=== PATIENT | female | born 2005 | race Caucasian/White ===

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

== ENCOUNTER 2024-05-18 07:45 | Inpatient (IN) | payer MEDICAID ==
[2024-05-18] MEDS ORDERED: Zofran 4 MG/2 ML VIAL IV PRN (08:14)
[2024-05-18 08:46] LABS: Absolute Neutrophil Ct (ANC) 4.58 x10^3/uL (1.56-6.13); BASOPHIL % 0.6 % (0.1-1.2); Basophil (Absolute #) 0.04 x10^3/uL (0.01-0.08); Eosinophil % 0.9 % (0.7-5.8); Eosinophil (Absolute #) 0.06 x10^3/uL (0.04-0.36); Hematocrit 30.4 % (34.1-44.9); Hemoglobin 9.2 g/dL (11.2-15.7); IMMATURE GRAN # 0.05 x10^3u/L (0.001-0.031); IMMATURE GRAN % 0.7 % (0.001-0.429); Lymphocyte (Absolute #) 1.67 x10^3/uL (1.18-3.74); Mean Cell Volume 75.8 fL (79.4-94.8); Mean Corpuscular Hemoglobin 22.9 pg (25.6-32.2); Mean Corpuscular Hgb Concent. 30.3 g/dL (32.2-35.5); Monocyte (Absolute #) 0.57 x10^3/uL (0.24-0.86); Monocytes % 8.2 % (4.7-12.5); Neutrophil % 65.6 % (34.0-71.1); Platelet Count 133 x10^3/uL (182-369); Red Blood Count 4.01 x10^6/uL (3.93-5.22); Red Cell Distribution Width 15.4 % (11.7-14.4)
[2024-05-18] MEDS: CYTOTEC PO SCH (08:51)
[2024-05-18 09:13] LABS: Amphetamine,Urine NEGATIVE (NEGATIVE); Barbiturate,Urine NEGATIVE (NEGATIVE); Benzodiazepine,Urine NEGATIVE (NEGATIVE); Cocaine,Urine NEGATIVE (NEGATIVE); Methadone,Urine NEGATIVE (NEGATIVE); Opiate,Urine NEGATIVE (NEGATIVE); PCP,Urine NEGATIVE (NEGATIVE); THC,Urine NEGATIVE (NEGATIVE)
[2024-05-18 09:26] LABS: ABO TYPING AB
[2024-05-18 09:27] LABS: Antibody Screen NEGATIVE (NEGATIVE); RH TYPING POSITIVE
[2024-05-18] MEDS: Lactated Ringers 1,000 ML IV SCH (21:50)
[2024-05-18] MEDS: FENTANYL 2 MCG-BUPIV 0.125%-NS 250 ML Epidur 250 ML EPIDURAL SCH (22:44)
[2024-05-18] MEDS: Lactated Ringers 1,000 ML IV ONE (23:01)
[2024-05-18] MEDS: OMNIPEN 2 GM*** 2 G in Sodium Chloride 100ML MINI-BAG PLUS 100 ML IV ONE (23:30)
[2024-05-19 00:43] LABS: Amphetamine,Urine NEGATIVE (NEGATIVE); Barbiturate,Urine NEGATIVE (NEGATIVE); Benzodiazepine,Urine NEGATIVE (NEGATIVE); Cocaine,Urine NEGATIVE (NEGATIVE); Methadone,Urine NEGATIVE (NEGATIVE); Opiate,Urine NEGATIVE (NEGATIVE); PCP,Urine NEGATIVE (NEGATIVE); THC,Urine NEGATIVE (NEGATIVE)
[2024-05-19] MEDS: OMNIPEN 1 GM*** 1 GM in Sodium Chloride 100ML MINI-BAG PLUS 100 ML IV SCH (03:30)
[2024-05-19] MEDS: Ephedrine Sulfate 50 MG/ML IV PRN (04:23)
[2024-05-19] MEDS: PITOCIN 30 UNITS/ LR 500 ML 30 UNITS/500 ML PLAST..BAG IV SCH (06:45)
[2024-05-19 07:35] LABS: RPR Non Reactive (Non Reactive)
[2024-05-19] MEDS ORDERED: OMNIPEN 2 GM*** 2 G in Sodium Chloride 100ML MINI-BAG PLUS 100 ML IV ONE (08:00)
[2024-05-19] MEDS ORDERED: TUCKS TP PRN (08:12)
[2024-05-19] MEDS ORDERED: OMNIPEN 1 GM*** 1 GM in Sodium Chloride 100ML MINI-BAG PLUS 100 ML IV SCH (11:00)
[2024-05-19] MEDS: Dermoplast Spray TP PRN (11:38)
[2024-05-19] MEDS: LANSINOH 40 GM TOP PRN (11:39)
[2024-05-19] MEDS: MOTRIN 400 MG PO PRN (18:10)
[2024-05-19] MEDS: TYLENOL EXTRA STRENGTH 500 MG PO PRN (20:38)
[2024-05-19] MEDS: Docusate Sodium 100 MG PO SCH (22:52)
[2024-05-20 06:13] LABS: Absolute Neutrophil Ct (ANC) 6.35 x10^3/uL (1.56-6.13); BASOPHIL % 0.7 % (0.1-1.2); Basophil (Absolute #) 0.07 x10^3/uL (0.01-0.08); Eosinophil % 1.3 % (0.7-5.8); Eosinophil (Absolute #) 0.13 x10^3/uL (0.04-0.36); Hematocrit 28.7 % (34.1-44.9); Hemoglobin 8.6 g/dL (11.2-15.7); IMMATURE GRAN # 0.07 x10^3u/L (0.001-0.031); IMMATURE GRAN % 0.7 % (0.001-0.429); Lymphocyte (Absolute #) 2.53 x10^3/uL (1.18-3.74); Lymphocytes % 25.1 % (19.3-51.7); Mean Cell Volume 74.5 fL (79.4-94.8); Mean Corpuscular Hemoglobin 22.3 pg (25.6-32.2); Mean Platelet Volume 12.8 fL (9.4-12.3); Monocyte (Absolute #) 0.91 x10^3/uL (0.24-0.86); Neutrophil % 63.2 % (34.0-71.1); Platelet Count 142 x10^3/uL (182-369); Red Blood Count 3.85 x10^6/uL (3.93-5.22); Red Cell Distribution Width 15.6 % (11.7-14.4); White Blood Count 10.1 x10^3/uL (3.98-10.04)
[2024-05-20 07:02] LABS: Slide Review 1 YES
[2024-05-20 09:27] VITALS: RESP 14
--- NOTE | 2024-05-20 11:13 | PCM.DS ---
Discharge Summary Date of Admission: 05/18/24 22:40 Admitting Physician: GREG CASTELLANO DO Consults: Consults on Case 05/18/24 22:06 Notify Anesthesia Provider OCTAVIO 05/19/24 11:01 Navigation ONCE Primary Care Provider: COREY CHU ALEXA Allergies Allergies bee venom protein (honey bee) Allergy (Verified 05/18/24 09:59) Hospital Summary - Hospital Course Hospital Course: patient had uncomplicated vaginal delivery at 39wks via cytotec induction, no pitocin required. no repair, well with mild lochia and no issues. well bonded with infant, breastfed previously with older child. requesting early discharge today - Vitals & Intake/Output Vital Signs: Vital Signs Temperature 98.2 F 05/20/24 08:30 Pulse Rate 82 05/20/24 08:30 Respiratory Rate 14 05/20/24 08:30 Blood Pressure 134/87 05/20/24 08:30 O2 Sat by Pulse Oximetry 98 05/20/24 08:30 Intake & Output: Intake & Output 05/17/24 05/18/24 05/19/24 05/20/24 11:59 11:59 11:59 11:59 Intake Total 480 5200 1000 Output Total 2275 Balance 480 2925 1000 Weight 117.934 kg - Lab Result Diagrams: 05/20/24 06:10 Lab Results-Last 24 Hrs: Lab Results-Last 24 Hours 05/20/24 Range/Units 06:10 WBC 10.1 H (3.98-10.04) x10^3/uL RBC 3.85 L (3.93-5.22) x10^6/uL Hgb 8.6 L (11.2-15.7) g/dL Hct 28.7 L (34.1-44.9) % MCV 74.5 L (79.4-94.8) fL MCH 22.3 L (25.6-32.2) pg MCHC 30.0 L (32.2-35.5) g/dL RDW 15.6 H (11.7-14.4) % Plt Count 142 L (182-369) x10^3/uL MPV 12.8 H (9.4-12.3) fL Gran % 63.2 (34.0-71.1) % Immature Gran % (Auto) 0.7 H (0.001-0.429) % Nucleat RBC Rel Count 0.0 (0.00-0.2) % Eos # (Auto) 0.13 (0.04-0.36) x10^3/uL Immature Gran # (Auto) 0.07 H (0.001-0.031) x10^3u/L Absolute Lymphs (auto) 2.53 (1.18-3.74) x10^3/uL Absolute Monos (auto) 0.91 H (0.24-0.86) x10^3/uL Absolute Nucleated RBC 0.00 (0.00-0.012) x10^3u/L Lymphocytes % 25.1 (19.3-51.7) % Monocytes % 9.0 (4.7-12.5) % Eosinophils % 1.3 (0.7-5.8) % Basophils % 0.7 (0.1-1.2) % Absolute Granulocytes 6.35 H (1.56-6.13) x10^3/uL Basophils # 0.07 (0.01-0.08) x10^3/uL Slides for Path Review YES - Procedures and Test Procedures and Tests throughout Hospitalization: Therapy Orders & Screens 05/19/24 07:41 Standby ROUTINE Comment: Diagnosis: labor induction Discharge Exam General Appearance: no apparent distress Neurologic Exam: alert, oriented x 3 Respiratory Exam: normal breath sounds, lungs clear, No respiratory distress Cardiovascular Exam: regular rate/rhythm Gastrointestinal/Abdomen Exam: soft, other (fundus firm 1/2) Extremity Exam: normal inspection, normal range of motion Final Diagnosis/Problem List - Final Discharge Diagnosis/Problem (1) Vaginal delivery Current Visit: Yes Status: Acute Code(s): O80 - ENCOUNTER FOR FULL-TERM UNCOMPLICATED DELIVERY (2) () Current Visit: Yes Status: Acute Code(s): Z78.9 - OTHER SPECIFIED HEALTH STATUS - Discharge Disposition: Home, Self-Care Condition: Good Prescriptions: Continue Ferrous Sulfate 325 mg PO BID Follow up with: COREY CHU MD [Primary Care Provider] - 6 weeks
[2024-05-20] MEDS: FERREX 150 PO SCH (11:37)
[2024-05-20] MEDS: Adacel Vial IM ONE (11:37)
[2024-05-20 17:05] VITALS: BP 131/83; PULSE 79; TEMP 97.9; O2SAT 99
== END 2024-05-20 19:00 | disposition home or self-care (01) | DRG 807 ==
LOC: OB 07:45 → OBSVTOIN 22:40
PROVIDERS: ADMIT Obstetrics & Gynecology; ATTEND Obstetrics & Gynecology
PROC: 10E0XZZ Delivery of Products of Conception, External Approach (ICD-10-PCS; principal; 2024-05-19)
DX: O69.81X0 Labor and delivery complicated by cord around neck, without compression, not applicable or unspecified (principal); Z37.0 Single live birth; Z3A.39 39 weeks gestation of pregnancy
CPT/HCPCS: 36415; 80307; 85025; 86592; 86850; 86900; 86901; 90715; 94799; 96372; J0290; J2590; A9270-GY